=== PATIENT | male | born 1985 | race African-American/Black ===

== ENCOUNTER 2021-11-20 22:36 | Emergency (ER) | payer OTHER ==
[~2021-11-20] VITALS: Ht 182.9 cm; Wt 113.4 kg
[~2021-11-20 22:36] MED LIST: AMOX1TAB12 PO; ENALAPRIL MALEAT5 MG; HIBICLENS118 ML TP; MOTRIN800 MG PO; MUPIROCIN15 GM TP; SMZ-TMP DS 800-1 TAB PO
[2021-11-20] MEDS ORDERED: COZAAR50 MG PO (22:44)
[2021-11-21] MEDS ORDERED: COZAAR100 MG PO (02:57)
== END 2021-11-21 03:44 ==
LOC: ER 22:36
DX: I10 Essential (primary) hypertension (principal)